=== PATIENT | female | born 1995 | race African-American/Black ===

== ENCOUNTER 2017-01-21 17:21 | Emergency (ER) | payer MEDICAID, OTHER ==
[~2017-01-21] VITALS: Ht 162.6 cm; Wt 50.0 kg
[2017-01-21 17:22] VITALS: BP 116/72; PULSE 69; RESP 16; TEMP 97.8; O2SAT 100
--- NOTE | 2017-01-21 17:36 | PD ---
HPI Chief Complaint: Skin Problem Time Seen by Provider: 17:36 Travel History International Travel<30 days: No Contact w/Intl Traveler<30days: No Traveled to known affect area: No History of Present Illness HPI 21-year-old Afro-[place]ian female presents the emergency Department with a rough slightly erythematous rash on her trunk which she has noticed over the past several days. Patient states is not very itchy, he denies any pain, or recent febrile illness in the last 2 weeks. Eyes any changes in her soap, lotion, detergents, or dryer sheets. She has no history of eczema in the past but her sister has it. She has no known drug allergies. PFSH Past Medical History ?: Not LMP: 01/14/17 Social History Alcohol Use: No Tobacco Use: No Substance Use: No Review of Systems Except as stated in HPI: all other systems reviewed are Neg General / Constitutional: No: Fever Eyes: No: Visual changes HENT: No: Headaches Cardiovascular: No: Chest Pain or Discomfort Respiratory: No: Shortness of Breath Gastrointestinal: No: Abdominal Pain Genitourinary: No: Dysuria Musculoskeletal: No: Pain Skin: Positive Rash Neurologic: No: Weakness Psychiatric: No: Depression Endocrine: No: Polydipsia Hematologic/Lymphatic: No: Easy Bruising Physical Exam Narrative GENERAL: Patient appears in no acute distress. SKIN: Warm and dry. Normal color. Normal turgor. She has several rough appearing slightly erythematous raised areas on the trunk consistent with atopic dermatitis. HEAD: Atraumatic. Normocephalic. EYES: Pupils equal and round. No scleral icterus. No injection or drainage. ENT: No nasal bleeding or discharge. Mucous membranes pink and moist. Pharynx is normal. NECK: Trachea midline. Neck is supple nontender. CARDIOVASCULAR: Regular rate and rhythm. RESPIRATORY: No accessory muscle use. Clear to auscultation. Breath sounds equal bilaterally. MUSCULOSKELETAL: Extremities without clubbing, cyanosis, or edema. No obvious deformities. NEUROLOGICAL: Awake and alert. No obvious cranial nerve deficits. Motor grossly within normal limits. Five out of 5 muscle strength in the arms and legs. Normal speech. PSYCHIATRIC: Appropriate mood and affect; insight and judgment normal. Data Data Last Documented VS Vital Signs Date Time Temp Pulse Resp B/P Pulse Ox O2 Delivery O2 Flow Rate FiO2 01/21/17 17:22 97.8 69 16 116/72 100 Room Air MDM Medical Decision Making Medical Screen Exam Complete: Yes Emergency Medical Condition: Yes Differential Diagnosis Rash. Viral exanthem. Atopic dermatitis. Narrative Course Patient is medically stable at time of exam. Patient is recommended to use [id number] moisturizer as well as hydrocortisone as discussed. Patient should follow with her primary care physician or return to emergency Department with worsening symptoms as needed. Diagnosis Primary Impression: Atopic dermatitis Qualified Code: L20.89 - Other atopic dermatitis Referrals: Primary Care Physician Patient Instructions: Eczema (ED), General Instructions Additional Instructions: Patient is recommended to use [id number] moisturizer as well as hydrocortisone as discussed. Patient should follow with her primary care physician or return to emergency Department with worsening symptoms as needed. Med/Other Pt SpecificInfo: Prescription(s) given Disposition: 01 DISCHARGE HOME Condition: Stable Dima Bahena Jan 21, 2017 17:36
== END 2017-01-21 18:20 | disposition home or self-care (01) ==
LOC: NEPB 17:21
DX: L20.89 Other atopic dermatitis (principal)
CPT/HCPCS: 99283